=== PATIENT | male | born 2000 ===

== ENCOUNTER 2025-04-01 23:16 | Emergency (ER) | payer SELFPAY | END 2025-04-02 00:47 | disposition home or self-care (01) | LOC: ERS 23:16 | DX: S99.912A Unspecified injury of left ankle, initial encounter (principal); F17.290 Nicotine dependence, other tobacco product, uncomplicated; X50.1XXA Overexertion from prolonged static or awkward postures, initial encounter | CPT/HCPCS: 99283 ==